=== PATIENT | female | born 1945 | race Caucasian/White ===

== ENCOUNTER 2017-08-06 10:44 | Inpatient (IN) | payer MEDICARE ==
[2017-08-06] VITALS (8 sets, daily range): BP systolic 128–152; BP diastolic 57–89; PULSE 114–126; RESP 16–24; TEMP 97.6–99.5; O2SAT 89–94
[~2017-08-06] VITALS: Ht 157.5 cm; Wt 61.1 kg
[~2017-08-06 10:44] MED LIST: FLAG500T PO; LACT PO; MMW SS; OFLO1DRO8 LEFT EYE; PRED10PA PO; TRAM50 PO
[2017-08-06] MEDS: RESP: ALBUTEROL 2.5 MG/IPRATROPIUM 0.5 MG NEB (SCH) INH ×5 (11:14→13:24)
[2017-08-06] MEDS ORDERED: SODIUM CHLORIDE 0.9% FLUSH 10 ML FLUSH IVF PRN (11:15)
[2017-08-06] MEDS ORDERED: methylPREDNISolone SOD SUCC 125 MG/2 ML VIAL IV PUSH ONE (11:15)
[2017-08-06 11:26] LABS: AUTOMATED NEUTROPHIL # 9.5 TH/MM3 (1.8-7.7); BASOPHIL % 0.4 % (0.0-2.0); EOSINOPHIL % 0.3 % (0.0-4.0); HEMATOCRIT 39.5 % (35.0-46.0); LYMPH % 10.9 % (9.0-44.0); LYMPHOCYTE # 1.3 TH/MM3 (1.0-4.8); MEAN CELL VOLUME 82.6 FL (80.0-100.0); MEAN CORPUSCULAR HEMOGLOBIN 28.3 PG (27.0-34.0); MEAN CORPUSCULAR HGB CONC 34.2 % (32.0-36.0); MONO % 6.9 % (0.0-8.0); NEUT % 81.5 % (16.0-70.0); PLATELET COUNT 288 TH/MM3 (150-450); RED BLOOD COUNT 4.78 MIL/MM3 (4.00-5.30); RED CELL DISTRIBUTION WIDTH 12.8 % (11.6-17.2); WHITE BLOOD COUNT 11.6 TH/MM3 (4.0-11.0)
[2017-08-06 11:35] LABS: HEMO FLAGS DIFF FINAL
[2017-08-06 11:37] LABS: CHLORIDE 105 MEQ/L (98-107); POTASSIUM 3.6 MEQ/L (3.5-5.1); SODIUM (NA) 139 MEQ/L (136-145)
[2017-08-06 11:40] LABS: BLOOD UREA NITROGEN 11 MG/DL (7-18)
[2017-08-06 11:41] LABS: ANION GAP 9 MEQ/L (5-15); BICARBONATE 25.3 MEQ/L (21.0-32.0)
[2017-08-06 11:44] LABS: ALT (GPT) 117 U/L (10-53)
[2017-08-06 11:45] LABS: AST (GOT) 68 U/L (15-37); GLOMERULAR FILTRATION RATE 61 ML/MIN (>89)
[2017-08-06 11:46] LABS: TOTAL BILIRUBIN ADULT 0.5 MG/DL (0.2-1.0)
[2017-08-06 11:47] LABS: ALKALINE PHOSPHATASE 152 U/L (45-117)
--- NOTE | 2017-08-06 11:59 | RADRPT ---
EXAM DATE/TIME: 08/06/2017 11:23 [facility] COMPARISON: CHEST SINGLE AP, April 04, 2015, 8:22. INDICATIONS : Short of breath, cough, fever MEDICAL HISTORY : None. SURGICAL HISTORY : None. ENCOUNTER: Initial ACUITY: 1 day PAIN SCORE: 0/10 LOCATION: Bilateral chest FINDINGS: The heart is normal. The pulmonary vascular pattern is normal. The lungs are clear. There is mild abebe vation of the right hemidiaphragm. No focal infiltrate is noted. CONCLUSION: 1. No acute cardiopulmonary disease. 2. Mild elevation of the right hemidiaphragm. Ross Mccall MD on August 06, 2017 at 11:56 Board Certified Radiologist. This report was verified electronically.
--- NOTE | 2017-08-06 12:04 | PD ---
HPI Chief Complaint: Respiratory Symptoms Time Seen by Provider: 11:04 Travel History International Travel<30 days: No Contact w/Intl Traveler<30days: No Traveled to known affect area: No History of Present Illness HPI 72-year-old female patient with history of bronchitis and pneumonia, presents to the ER today for several days history of coughing, shortness of breath, worse with exertion. She denies any leg swelling, fevers, vomiting, or other symptoms. She denies any recent trips. Modifying Factors: Worse with exertion Associated Signs & Symptoms: Coughing, shortness of breath Risk Factors: None PFSH Past Medical History Hx Anticoagulant Therapy: No Asthma: No Blood Disorders: No Anxiety: Yes (PAST [place] FOR) Depression: No Heart Rhythm Problems: No Cancer: No Cardiovascular Problems: No High Cholesterol: No Chemotherapy: No Chest Pain: No Congestive Heart Failure: No COPD: No Cerebrovascular Accident: No Diabetes: No Diminished Hearing: No Endocrine: No Gastrointestinal Disorders: Yes (RECENT HX OF STOMACH UPSET AND DIAGNOSTICS FOR SAME) Genitourinary: No Headaches: Yes Immune Disorder: No Musculoskeletal: No Neurologic: No Psychiatric: No Reproductive: No Respiratory: No Pneumonia: Yes Radiation Therapy: No Sleep Apnea: No Thyroid Disease: No Influenza Vaccination: No Menopausal: Yes : 2 Para: 2 Past Surgical History Appendectomy: Yes Hysterectomy: Yes Oral Surgery: Yes (ESOPHAGUS DILATION 04/03/15) Other Surgery: Yes (breast augmentation, colonoscopy/endoscopy 04/03/15, COLON POLYUPS REMOVED ) Social History Alcohol Use: No Tobacco Use: No Substance Use: No Allergies-Medications (Allergen,Severity, Reaction): Coded Allergies: No Known Allergies (Unverified , 04/04/15) Reported Meds & Prescriptions Reported Meds & Active Scripts Active Ocuflox 0.3% Opht Soln (5 Ml) (Ofloxacin) 0.3 % Soln 1 Drop LEFT EYE QID 7 Days Ultram (Tramadol HCl) 50 Mg Tab 50 Mg PO Q6H PRN FOR PAIN Sterapred Ds 12 Day Pack (Prednisone) 10 Mg Wolfgang 10 Mg PO DIRECTED USE DIRECTED Magic Mouthwash-Diphenhy Formula (Lidocaine/Diphenhydr/Alum/Mg/Simeth) Ml 5 Ml SS Q3HR MAGIC MOUTHWASH=MIX 1/3 VISCOUS LIDOCAINE(80 ML), 1/3 MAALOX(80 ML),AND 1/3 BENADRYL(80 ML) TO EQUAL 240 ML TOTAL VOLUME. Lactinex (Lactobacillus Acidophilus) 1 Tab Tab 1 Tab PO Q12HR 30 Days Flagyl (Metronidazole) 500 Mg Tab 500 Mg PO TID 13 Days Review of Systems Except as stated in HPI: all other systems reviewed are Neg Physical Exam Narrative GENERAL: Well-developed elderly white female patient currently in mild respiratory distress. Awake and oriented 3. SKIN: Focused skin assessment warm/dry. HEAD: Atraumatic. Normocephalic. EYES: Pupils equal and round. No scleral icterus. No injection or drainage. ENT: No nasal bleeding or discharge. Mucous membranes pink and moist. NECK: Trachea midline. No JVD. CARDIOVASCULAR: Regular rate and rhythm. No murmur appreciated. RESPIRATORY: Mild accessory muscle use. Bilateral wheezing throughout. Breath sounds equal bilaterally. GASTROINTESTINAL: Abdomen soft, non-tender, nondistended. Hepatic and splenic margins not palpable. MUSCULOSKELETAL: No obvious deformities. No clubbing. No cyanosis. No edema. NEUROLOGICAL: Awake and alert. No obvious cranial nerve deficits. Motor grossly within normal limits. Normal speech. PSYCHIATRIC: Appropriate mood and affect; insight and judgment normal. Data Data Last Documented VS Vital Signs Date Time Temp Pulse Resp B/P (MAP) Pulse Ox O2 Delivery O2 Flow Rate FiO2 08/06/17 13:15 126 20 128/57 (80) 93 Nasal Cannula 4.00 08/06/17 10:53 99.5 Orders Orders Complete Blood Count With Diff (08/06/17 11:04) Comprehensive Metabolic Panel (08/06/17 11:04) B-Type Natriuretic Peptide (08/06/17 11:04) Influenzae A/B Antigen (08/06/17 11:04) Blood Culture (08/06/17 11:04) Iv Access Insert/Monitor (08/06/17 11:04) Electrocardiogram (08/06/17 11:04) Ecg Monitoring (08/06/17 11:04) Oximetry (08/06/17 11:04) Oxygen Administration (08/06/17 11:04) Chest, Single Ap (08/06/17 11:04) Sodium Chloride 0.9% Flush (Ns Flush) (08/06/17 11:15) Methylprednisolone So Succ Inj (Solumedr (08/06/17 11:15) Albuterol-Ipratropium Neb (Duoneb Neb) (08/06/17 11:15) Albuterol-Ipratropium Neb (Duoneb Neb) (08/06/17 12:15) Magnesium Sulfate 1 Gm Premix (Magnesium (08/06/17 13:00) Albuterol-Ipratropium Neb (Duoneb Neb) (08/06/17 13:00) Admit Order (Ed Use Only) (08/06/17 14:14) Labs Laboratory Tests Test 08/06/17 10:55 08/06/17 11:13 White Blood Count 11.6 TH/MM3 Red Blood Count 4.78 MIL/MM3 Hemoglobin 13.5 GM/DL Hematocrit 39.5 % Mean Corpuscular Volume 82.6 FL Mean Corpuscular Hemoglobin 28.3 PG Mean Corpuscular Hemoglobin Concent 34.2 % Red Cell Distribution Width 12.8 % Platelet Count 288 TH/MM3 Mean Platelet Volume 7.8 FL Neutrophils (%) (Auto) 81.5 % Lymphocytes (%) (Auto) 10.9 % Monocytes (%) (Auto) 6.9 % Eosinophils (%) (Auto) 0.3 % Basophils (%) (Auto) 0.4 % Neutrophils # (Auto) 9.5 TH/MM3 Lymphocytes # (Auto) 1.3 TH/MM3 Monocytes # (Auto) 0.8 TH/MM3 Eosinophils # (Auto) 0.0 TH/MM3 Basophils # (Auto) 0.0 TH/MM3 CBC Comment DIFF FINAL Differential Comment Blood Urea Nitrogen 11 MG/DL Creatinine 0.91 MG/DL Random Glucose 138 MG/DL Total Protein 7.3 GM/DL Albumin 3.5 GM/DL Calcium Level 8.6 MG/DL Alkaline Phosphatase 152 U/L Aspartate Amino Transf (AST/SGOT) 68 U/L Alanine Aminotransferase (ALT/SGPT) 117 U/L Total Bilirubin 0.5 MG/DL Sodium Level 139 MEQ/L Potassium Level 3.6 MEQ/L Chloride Level 105 MEQ/L Carbon Dioxide Level 25.3 MEQ/L Anion Gap 9 MEQ/L Estimat Glomerular Filtration Rate 61 ML/MIN B-Type Natriuretic Peptide 44 PG/ML MDM Medical Decision Making Medical Screen Exam Complete: Yes Emergency Medical Condition: Yes Medical Record Reviewed: Yes Interpretation(s) Laboratory Tests Test 08/06/17 10:55 08/06/17 11:13 White Blood Count 11.6 TH/MM3 (4.0-11.0) Neutrophils (%) (Auto) 81.5 % (16.0-70.0) Neutrophils # (Auto) 9.5 TH/MM3 (1.8-7.7) Random Glucose 138 MG/DL (74-106) Alkaline Phosphatase 152 U/L (45-117) Aspartate Amino Transf (AST/SGOT) 68 U/L (15-37) Alanine Aminotransferase (ALT/SGPT) 117 U/L (10-53) Estimat Glomerular Filtration Rate 61 ML/MIN (>89) Last 24 hours Impressions Chest X-Ray 08/06/17 1104 Signed Impressions: Service Date/Time: Sunday, August 06, 2017 11:23 - CONCLUSION: 1. No acute cardiopulmonary disease. 2. Mild elevation of the right hemidiaphragm. Ross Mccall MD Differential Diagnosis Coughing, wheezing, shortness of breath: Bronchitis versus pneumonia versus COPD exacerbation versus CHF Narrative Course Chest x-ray is clear. Her BNP is unremarkable. She was initiated on Solu- Medrol and multiple doses of nebulizers. She did have some improvement in symptoms but her saturations are still quite low. Magnesium was also given in the ER. And at this point, my plan would be to admit her for further treatment. Case was discussed with Dr. dugan for admission. Diagnosis Primary Impression: Bronchitis Additional Impression: Hypoxia Admitting Information Admitting Physician Requests: Admit Tressa Carr MD Aug 06, 2017 12:04
--- NOTE | 2017-08-06 12:32 | EKG ---
Date Performed: 08/06/2017 Time Performed: 10:52:06 PTAGE: 72 years EKG: SINUS TACHYCARDIA POSSIBLE LEFT ATRIAL ENLARGEMENT ABNORMAL RHYTHM ECG NO PREVIOUS TRACING DOCTOR: Dave Craft Interpretating Date/Time 08/06/2017 12:31:52
[2017-08-06] MEDS: MAGNESIUM SULFATE 1 GM PREMIX 100 ML IV SCH ×2 (13:32→14:47)
--- NOTE | 2017-08-06 15:34 | MH ---
cc: PITER OLIVARES M.D. DATE OF ADMISSION: 08/06/2017 ADMITTING DIAGNOSIS: 1. Asthmatic bronchitis. 2. Mild hypoxia. 3. Elevated liver function tests of questionable etiology. 4. Gastroesophageal reflux disease (GERD). 5. History of colon polyps. 6. Vitamin D insufficiency. HISTORY OF PRESENT ILLNESS This is a 72-year-old white female who came to the emergency room today with worsening shortness of breath, wheezing and cough. She started with cold-like symptoms or runny nose and cough about six days ago and it got worse yesterday and this morning when she woke up she was having difficulty breathing in and out, more so on breathing out. The cough has been worsening and she has not been able to cough up much mucus only occasionally productive. She has had some chills last night but none today. No sore throat. No vomiting or abdominal pain or chest pain. In the emergency department she has been given several breathing treatments with just some slight improvement but still mildly tachycardic and requiring oxygen and is being admitted for further treatment. PAST MEDICAL HISTORY: She denies any history of COPD or emphysema. She smoked, she states, only about a total 12 years and one pack a day at the most. She has had bronchitis in the past. No TB, no heart disease, hypertension, diabetes, no kidney disease. Denies any history of liver disease but I noticed that her liver enzymes are a little elevated. She was noted to have some diverticulosis on a CT scan of abdomen 04/04/2015. She had some colon polyps removed on 04/03/15 and had an upper endoscopy 04/03/2015 that showed esophagitis, gastritis, small hiatal hernia and dilation of esophageal stricture. She had some vitamin D insufficiency. She has had H. Pylori infection and no stroke or seizure. She has had chickenpox. No thyroid disease, PAST SURGICAL HISTORY: 1. Vaginal hysterectomy. 2. Appendectomy. 3. Bilateral saline breast implants. 4. Colonoscopy 04/03/2015 with four polyps removed. 5. EGD 04/03/2015 as mentioned with gastritis, esophagitis, small hiatal hernia and dilation of a stricture. ALLERGIES: CODEINE JUST CAUSES SOME NAUSEA. MEDICATIONS: She is not on any medications at home and does not have any inhalers at home. FAMILY HISTORY: Her mother at 78 of COPD / emphysema. Her father at 79 of lung cancer. SOCIAL HISTORY: She quit smoking two or three years ago. She smoked a pack a day. She states that she would smoke off and on and she estimates her total years of smoking was 12. She denies alcohol. She is twice. She used to work in management of properties. REVIEW OF SYSTEMS: GENERAL: She has not checked her temperature. She did have some chills last night. HEAD, EYES, EARS, NOSE, THROAT: She has had a runny nose. No sore throat. CARDIOVASCULAR: No chest pain or palpitations. PULMONARY: As mentioned. GASTROINTESTINAL: No nausea or vomiting, abdominal pain. She had some loose stools earlier in the week. No rectal bleeding. EXTREMITIES: Without swelling or calf pain. SKIN: Without rash. NEUROLOGIC: No focal signs. PHYSICAL EXAMINATION: GENERAL: A pleasant white female in no significant distress. VITAL SIGNS: Her pulse has been tachycardic at times from 114 to 125, respiratory rate last checked was 20, blood pressure 128/57, 02 saturation was down to 89% on oxygen at one point. She is up to 93% on four liters now. HEAD, EYES, EARS, NOSE, THROAT: TMs clear. Nose negative. Mouth without inflammation or lesion. NECK: Without bruit. No JVD. HEART: Regular tachycardia. LUNGS: Scattered wheezes and rhonchi. ABDOMEN: Abdomen is soft, nontender, no masses. EXTREMITIES: Good pulses both feet. No edema. No calf tenderness. SKIN: Negative. NEUROLOGIC: Oriented x3. Cranial nerves intact. Motor and sensory intact. LABORATORY DATA: Her white count was 11.6, hemoglobin 13.5, platelets were normal. Her AST was 68, ALT was 117, alkaline phosphatase 152. BNP was 44. Albumin 3.5 total protein 7.3. GFR was 61, sodium 139, potassium 3.6, chloride 105, CO2 25.3, 819. IMAGING STUDIES: Chest x-ray showed no acute cardiopulmonary disease. There was some mild elevation of the right hemidiaphragm. ASSESSMENT As noted. PLAN: 1. Patient will be admitted and put on IV Solu-Medrol. 2. Give her some IV Zithromax. 3. Also will continue her on duonebulizer treatments. 4. She will be maintained on supplemental oxygen for now. No further recommendation at this time. MD MEGHAN Dial/BRENDON /2:48 PM /3:19 PM
[2017-08-06] MEDS: AZITHROMYCIN INJ 500 MG in SODIUM CHLOR 0.9% 250 ML INJ 250 ML IV SCH (15:57)
[2017-08-06] MEDS: ENOXAPARIN SODIUM 40 MG/0.4 ML SYRINGE SQ SCH (15:58)
[2017-08-06] MEDS: RESP: ALBUTEROL 2.5 MG/IPRATROPIUM 0.5 MG NEB (SCH) NEB ×3 (16:56→23:28)
[2017-08-06] MEDS: methylPREDNISolone SOD SUCC 40 MG/1 ML VIAL IV PUSH SCH ×2 (17:07→23:50)
[2017-08-06] MEDS: BENZOCAINE 6 MG/MENTHOL 10 MG LOZENGE BUCCAL PRN (23:50)
[2017-08-07] VITALS (8 sets, daily range): BP systolic 112–143; BP diastolic 53–63; PULSE 101–109; RESP 16–20; TEMP 97.1–100.1; O2SAT 91–97
[2017-08-07] MEDS: RESP: ALBUTEROL 2.5 MG/IPRATROPIUM 0.5 MG NEB (SCH) NEB ×6 (03:58→23:56)
[2017-08-07] MEDS: methylPREDNISolone SOD SUCC 40 MG/1 ML VIAL IV PUSH SCH ×3 (05:47→17:52)
[2017-08-07] MEDS: BENZOCAINE 6 MG/MENTHOL 10 MG LOZENGE BUCCAL PRN ×3 (05:51→13:12)
[2017-08-07 06:06] LABS: AUTOMATED NEUTROPHIL # 12.4 TH/MM3 (1.8-7.7); BASOPHIL % 0.1 % (0.0-2.0); EOSINOPHIL % 0.2 % (0.0-4.0); LYMPH % 5.9 % (9.0-44.0); LYMPHOCYTE # 0.8 TH/MM3 (1.0-4.8); MEAN CELL VOLUME 84.9 FL (80.0-100.0); MEAN CORPUSCULAR HEMOGLOBIN 27.3 PG (27.0-34.0); MEAN CORPUSCULAR HGB CONC 32.2 % (32.0-36.0); MONO % 6.2 % (0.0-8.0); NEUT % 87.6 % (16.0-70.0); PLATELET COUNT 267 TH/MM3 (150-450); RED BLOOD COUNT 4.36 MIL/MM3 (4.00-5.30); RED CELL DISTRIBUTION WIDTH 13.3 % (11.6-17.2); WHITE BLOOD COUNT 14.1 TH/MM3 (4.0-11.0)
[2017-08-07 06:10] LABS: HEMO FLAGS DIFF FINAL
--- NOTE | 2017-08-07 08:01 | HHI.PR ---
Subjective Remarks States she is breathing better but still has a congested cough and wheezing. No other complaints. She is still requiring oxygen Objective Vitals Vital Signs Date Time Temp Pulse Resp B/P (MAP) Pulse Ox O2 Delivery O2 Flow Rate FiO2 08/07/17 07:41 93 Nasal Cannula 4.00 08/07/17 00:00 97.3 108 17 131/63 (85) 94 08/06/17 20:00 97.6 126 17 136/57 (83) 92 08/06/17 19:19 94 Nasal Cannula 4.00 08/06/17 16:59 91 Nasal Cannula 4.00 08/06/17 16:00 98.4 120 16 146/67 (93) 93 Manual Cuff/Auscultation 08/06/17 15:15 122 20 134/89 (104) 93 Nasal Cannula 4.00 08/06/17 13:15 126 20 128/57 (80) 93 Nasal Cannula 4.00 08/06/17 12:03 116 20 129/67 (87) 91 Nasal Cannula 4.00 08/06/17 10:53 24 89 Nasal Cannula 4.00 08/06/17 10:53 99.5 114 24 152/85 (107) 89 Result Diagram: 08/07/17 0545 08/06/17 1055 Other Results Laboratory Tests Test 08/06/17 10:55 08/06/17 11:13 08/07/17 05:45 White Blood Count 11.6 TH/MM3 14.1 TH/MM3 Red Blood Count 4.78 MIL/MM3 4.36 MIL/MM3 Hemoglobin 13.5 GM/DL 11.9 GM/DL Hematocrit 39.5 % 37.0 % Mean Corpuscular Volume 82.6 FL 84.9 FL Mean Corpuscular Hemoglobin 28.3 PG 27.3 PG Mean Corpuscular Hemoglobin Concent 34.2 % 32.2 % Red Cell Distribution Width 12.8 % 13.3 % Platelet Count 288 TH/MM3 267 TH/MM3 Mean Platelet Volume 7.8 FL 7.6 FL Neutrophils (%) (Auto) 81.5 % 87.6 % Lymphocytes (%) (Auto) 10.9 % 5.9 % Monocytes (%) (Auto) 6.9 % 6.2 % Eosinophils (%) (Auto) 0.3 % 0.2 % Basophils (%) (Auto) 0.4 % 0.1 % Neutrophils # (Auto) 9.5 TH/MM3 12.4 TH/MM3 Lymphocytes # (Auto) 1.3 TH/MM3 0.8 TH/MM3 Monocytes # (Auto) 0.8 TH/MM3 0.9 TH/MM3 Eosinophils # (Auto) 0.0 TH/MM3 0.0 TH/MM3 Basophils # (Auto) 0.0 TH/MM3 0.0 TH/MM3 CBC Comment DIFF FINAL DIFF FINAL Differential Comment Blood Urea Nitrogen 11 MG/DL Creatinine 0.91 MG/DL Random Glucose 138 MG/DL Total Protein 7.3 GM/DL Albumin 3.5 GM/DL Calcium Level 8.6 MG/DL Alkaline Phosphatase 152 U/L Aspartate Amino Transf (AST/SGOT) 68 U/L Alanine Aminotransferase (ALT/SGPT) 117 U/L Total Bilirubin 0.5 MG/DL Direct Bilirubin 0.1 MG/DL Sodium Level 139 MEQ/L Potassium Level 3.6 MEQ/L Chloride Level 105 MEQ/L Carbon Dioxide Level 25.3 MEQ/L Anion Gap 9 MEQ/L Estimat Glomerular Filtration Rate 61 ML/MIN B-Type Natriuretic Peptide 44 PG/ML Imaging Last Impressions Chest X-Ray 08/06/17 1104 Signed Impressions: Service Date/Time: Sunday, August 06, 2017 11:23 - CONCLUSION: 1. No acute cardiopulmonary disease. 2. Mild elevation of the right hemidiaphragm. Ross Mccall MD Objective Remarks Exam: Pleasant white female in no distress HEENT: Pupils equal, no scleral icterus, mouth negative Neck: No JVD Heart: RRR with no murmurs Lungs: Still some wheezing and rhonchi throughout Abdomen: Soft, nontender Extremities: No edema, no calf tenderness Neuro: Alert, oriented, no focal findings A/P Assessment and Plan Assessment: --Asthmatic bronchitis --Mild hypoxia --Elevated liver enzymes--questionable etiology --GERD --Hx of colon polyps Plan: Continue IV Steroids and bronchodilator treatments. Continue IV Zithromax Continue oxygen as necessary. An ultrasound of the abdomen has been ordered for today to look at her liver and biliary tract. Continue DVT prophylaxis. Jim Morton MD Aug 07, 2017 08:01
--- NOTE | 2017-08-07 09:35 | RADRPT ---
EXAM DATE/TIME: 08/07/2017 07:57 [facility] COMPARISON: No previous studies available for comparison. INDICATIONS : Elevated lab values. MEDICAL HISTORY : Pneumonia. Anxiety. Clostridum difficle. SURGICAL HISTORY : Appendectomy. Hysterectomy. Esophagus dilation. Colonoscopy. Endoscopy. Breast augmentation. Colon polyps removed. ENCOUNTER: Initial ACUITY: 1 day PAIN SCORE: 0/10 LOCATION: Abdomen. MEASUREMENTS: LIVER: 11.7 cm length COMMON DUCT: 4 mm RIGHT KIDNEY: 9.2 x 4.9 x 4.8 cm LEFT KIDNEY: 9.8 x 5.1 x 5.0 cm SPLEEN: 8.6 cm length AORTA: 1.9cm maximal FINDINGS: LIVER: Normal echotexture without focal lesion or ductal dilatation. COMMON DUCT: No intraluminal mass or stone visualized. GALLBLADDER: Contains no stones, demonstrates no wall thickening or pericholecystic fluid. PANCREAS: The visualized portions are within normal limits. RIGHT KIDNEY: No hydronephrosis, stone or mass. LEFT KIDNEY: No hydronephrosis, stone or mass. SPLEEN: No focal lesion. AORTA: Non aneurysmal. IVC: Within normal limits. CONCLUSION: 1. Unremarkable abdominal ultrasound examination. Specifically, no evidence for cholelithiasis or acu te cholecystitis and no evidence for biliary obstruction. Quinton Nieto MD on August 07, 2017 at 9:31 Board Certified Radiologist. This report was verified electronically.
[2017-08-07] MEDS: AZITHROMYCIN INJ 500 MG in SODIUM CHLOR 0.9% 250 ML INJ 250 ML IV SCH (15:27)
[2017-08-07] MEDS: ENOXAPARIN SODIUM 40 MG/0.4 ML SYRINGE SQ SCH (17:05)
[2017-08-08] VITALS (7 sets, daily range): BP systolic 136–154; BP diastolic 64–74; PULSE 92–114; RESP 16–20; TEMP 96.7–99; O2SAT 92–96
[2017-08-08] MEDS: methylPREDNISolone SOD SUCC 40 MG/1 ML VIAL IV PUSH SCH ×5 (00:07→23:55)
[2017-08-08] MEDS: RESP: ALBUTEROL 2.5 MG/IPRATROPIUM 0.5 MG NEB (SCH) NEB ×5 (04:15→19:35)
[2017-08-08 06:26] LABS: AUTOMATED NEUTROPHIL # 15.5 TH/MM3 (1.8-7.7); BASOPHIL % 0.1 % (0.0-2.0); EOSINOPHIL % 0.1 % (0.0-4.0); HEMATOCRIT 35.1 % (35.0-46.0); LYMPH % 5.1 % (9.0-44.0); LYMPHOCYTE # 0.9 TH/MM3 (1.0-4.8); MEAN CELL VOLUME 84.4 FL (80.0-100.0); MEAN CORPUSCULAR HEMOGLOBIN 28.5 PG (27.0-34.0); MEAN CORPUSCULAR HGB CONC 33.8 % (32.0-36.0); MONO % 5.9 % (0.0-8.0); NEUT % 88.8 % (16.0-70.0); PLATELET COUNT 272 TH/MM3 (150-450); RED BLOOD COUNT 4.16 MIL/MM3 (4.00-5.30); RED CELL DISTRIBUTION WIDTH 13.2 % (11.6-17.2); WHITE BLOOD COUNT 17.4 TH/MM3 (4.0-11.0)
[2017-08-08 06:35] LABS: HEMO FLAGS DIFF FINAL
[2017-08-08 06:47] LABS: INDIRECT BILIRUBIN 0.3 MG/DL (0.0-0.8); TOTAL BILIRUBIN ADULT 0.4 MG/DL (0.2-1.0)
--- NOTE | 2017-08-08 07:48 | HHI.PR ---
Subjective Remarks Still coughing and wheezing however she feels like she is gradually getting better. Still on 3 liters oxygen. Objective Vitals Vital Signs Date Time Temp Pulse Resp B/P (MAP) Pulse Ox O2 Delivery O2 Flow Rate FiO2 08/08/17 07:28 94 Nasal Cannula 3.00 08/08/17 00:00 99.0 92 20 143/67 (92) 94 08/07/17 23:56 95 Nasal Cannula 4.00 08/07/17 20:00 95 Nasal Cannula 4.00 08/07/17 20:00 100.1 103 20 143/63 (89) 95 08/07/17 19:44 97 Nasal Cannula 4.00 08/07/17 18:26 98.5 101 20 136/63 (87) 95 08/07/17 14:54 97.1 102 16 128/60 (82) 93 08/07/17 09:42 99.2 109 16 112/53 (72) 91 Result Diagram: 08/08/17 0525 08/06/17 1055 Other Results Laboratory Tests Test 08/06/17 10:55 08/06/17 11:13 08/07/17 05:45 08/08/17 05:25 White Blood Count 11.6 TH/MM3 14.1 TH/MM3 17.4 TH/MM3 Red Blood Count 4.78 MIL/MM3 4.36 MIL/MM3 4.16 MIL/MM3 Hemoglobin 13.5 GM/DL 11.9 GM/DL 11.8 GM/DL Hematocrit 39.5 % 37.0 % 35.1 % Mean Corpuscular Volume 82.6 FL 84.9 FL 84.4 FL Mean Corpuscular Hemoglobin 28.3 PG 27.3 PG 28.5 PG Mean Corpuscular Hemoglobin Concent 34.2 % 32.2 % 33.8 % Red Cell Distribution Width 12.8 % 13.3 % 13.2 % Platelet Count 288 TH/MM3 267 TH/MM3 272 TH/MM3 Mean Platelet Volume 7.8 FL 7.6 FL 8.1 FL Neutrophils (%) (Auto) 81.5 % 87.6 % 88.8 % Lymphocytes (%) (Auto) 10.9 % 5.9 % 5.1 % Monocytes (%) (Auto) 6.9 % 6.2 % 5.9 % Eosinophils (%) (Auto) 0.3 % 0.2 % 0.1 % Basophils (%) (Auto) 0.4 % 0.1 % 0.1 % Neutrophils # (Auto) 9.5 TH/MM3 12.4 TH/MM3 15.5 TH/MM3 Lymphocytes # (Auto) 1.3 TH/MM3 0.8 TH/MM3 0.9 TH/MM3 Monocytes # (Auto) 0.8 TH/MM3 0.9 TH/MM3 1.0 TH/MM3 Eosinophils # (Auto) 0.0 TH/MM3 0.0 TH/MM3 0.0 TH/MM3 Basophils # (Auto) 0.0 TH/MM3 0.0 TH/MM3 0.0 TH/MM3 CBC Comment DIFF FINAL DIFF FINAL DIFF FINAL Differential Comment Blood Urea Nitrogen 11 MG/DL Creatinine 0.91 MG/DL Random Glucose 138 MG/DL Total Protein 7.3 GM/DL 6.8 GM/DL Albumin 3.5 GM/DL 3.0 GM/DL Calcium Level 8.6 MG/DL Alkaline Phosphatase 152 U/L 120 U/L Aspartate Amino Transf (AST/SGOT) 68 U/L 50 U/L Alanine Aminotransferase (ALT/SGPT) 117 U/L 73 U/L Total Bilirubin 0.5 MG/DL 0.4 MG/DL Direct Bilirubin 0.1 MG/DL 0.1 MG/DL Sodium Level 139 MEQ/L Potassium Level 3.6 MEQ/L Chloride Level 105 MEQ/L Carbon Dioxide Level 25.3 MEQ/L Anion Gap 9 MEQ/L Estimat Glomerular Filtration Rate 61 ML/MIN B-Type Natriuretic Peptide 44 PG/ML Indirect Bilirubin 0.3 MG/DL Imaging Last Impressions Abdomen Ultrasound 08/07/17 0000 Signed Impressions: Service Date/Time: Monday, August 07, 2017 07:57 - CONCLUSION: 1. Unremarkable abdominal ultrasound examination. Specifically, no evidence for cholelithiasis or acute cholecystitis and no evidence for biliary obstruction. Quinton Nieto MD Chest X-Ray 08/06/17 1104 Signed Impressions: Service Date/Time: Sunday, August 06, 2017 11:23 - CONCLUSION: 1. No acute cardiopulmonary disease. 2. Mild elevation of the right hemidiaphragm. Ross Mccall MD Last Impressions Chest X-Ray 08/06/17 1104 Signed Impressions: Service Date/Time: Sunday, August 06, 2017 11:23 - CONCLUSION: 1. No acute cardiopulmonary disease. 2. Mild elevation of the right hemidiaphragm. Ross Mccall MD Objective Remarks Exam: Pleasant white female in no distress HEENT: Pupils equal, no scleral icterus, mouth negative Neck: No JVD Heart: RRR with no murmurs Lungs: Still some wheezing and rhonchi throughout Abdomen: Soft, nontender Extremities: No edema, no calf tenderness Neuro: Alert, oriented, no focal findings A/P Assessment and Plan Assessment: --Asthmatic bronchitis--Her WBC count has gone up which could be more from her steroids than worsening infection. --Mild hypoxia still requiring oxygen --Elevated liver enzymes--ultrasound negative. Her enzymes are improving. --GERD --Hx of colon polyps Plan: Continue IV Steroids and bronchodilator treatments. Change IV Zithromax to Levaquin. Continue oxygen as necessary. Continue DVT prophylaxis. Change to inpatient status since still requiring oxygen and respiratory status still compromised. Jim Morton MD Aug 08, 2017 07:48
[2017-08-08] MEDS ORDERED: LEVOFLOXACIN 500 MG PREMIX INJ 100 ML IV ONE (08:00)
[2017-08-08] MEDS: ENOXAPARIN SODIUM 40 MG/0.4 ML SYRINGE SQ SCH (16:11)
[2017-08-09] VITALS (7 sets, daily range): BP systolic 134–161; BP diastolic 67–75; PULSE 98–109; RESP 20; TEMP 97.1–99.1; O2SAT 90–98
[2017-08-09] MEDS: RESP: ALBUTEROL 2.5 MG/IPRATROPIUM 0.5 MG NEB (SCH) NEB ×7 (00:25→23:28)
[2017-08-09 05:55] LABS: AUTOMATED NEUTROPHIL # 14.6 TH/MM3 (1.8-7.7); EOSINOPHIL % 0.1 % (0.0-4.0); LYMPH % 5.4 % (9.0-44.0); LYMPHOCYTE # 0.9 TH/MM3 (1.0-4.8); MEAN CELL VOLUME 83.5 FL (80.0-100.0); MEAN CORPUSCULAR HEMOGLOBIN 27.6 PG (27.0-34.0); MEAN CORPUSCULAR HGB CONC 33.1 % (32.0-36.0); MONO % 5.6 % (0.0-8.0); NEUT % 88.9 % (16.0-70.0); PLATELET COUNT 308 TH/MM3 (150-450); RED BLOOD COUNT 4.19 MIL/MM3 (4.00-5.30); RED CELL DISTRIBUTION WIDTH 12.8 % (11.6-17.2); WHITE BLOOD COUNT 16.4 TH/MM3 (4.0-11.0)
[2017-08-09] MEDS: methylPREDNISolone SOD SUCC 40 MG/1 ML VIAL IV PUSH SCH ×4 (05:56→23:30)
[2017-08-09 06:21] LABS: HEMO FLAGS DIFF FINAL
[2017-08-09 06:53] LABS: INDIRECT BILIRUBIN 0.2 MG/DL (0.0-0.8); TOTAL BILIRUBIN ADULT 0.3 MG/DL (0.2-1.0)
--- NOTE | 2017-08-09 06:59 | HHI.PR ---
Subjective Remarks Still coughing and wheezing but thinks it is gradually getting better. Objective Vitals Vital Signs Date Time Temp Pulse Resp B/P (MAP) Pulse Ox O2 Delivery O2 Flow Rate FiO2 08/09/17 00:00 98.8 98 20 134/67 (89) 93 08/08/17 20:00 96 Nasal Cannula 3.50 08/08/17 20:00 98.6 99 20 154/74 (100) 96 08/08/17 19:35 96 Nasal Cannula 3.00 08/08/17 18:43 98.3 105 16 147/73 (97) 95 08/08/17 14:49 97.7 106 18 136/66 (89) 92 08/08/17 09:28 96.7 114 16 139/64 (89) 95 08/08/17 09:00 Nasal Cannula 3.00 08/08/17 07:28 94 Nasal Cannula 3.00 Result Diagram: 08/09/17 0543 08/06/17 1055 Other Results Laboratory Tests Test 08/08/17 05:25 08/09/17 05:43 White Blood Count 17.4 TH/MM3 16.4 TH/MM3 Red Blood Count 4.16 MIL/MM3 4.19 MIL/MM3 Hemoglobin 11.8 GM/DL 11.6 GM/DL Hematocrit 35.1 % 35.0 % Mean Corpuscular Volume 84.4 FL 83.5 FL Mean Corpuscular Hemoglobin 28.5 PG 27.6 PG Mean Corpuscular Hemoglobin Concent 33.8 % 33.1 % Red Cell Distribution Width 13.2 % 12.8 % Platelet Count 272 TH/MM3 308 TH/MM3 Mean Platelet Volume 8.1 FL 7.3 FL Neutrophils (%) (Auto) 88.8 % 88.9 % Lymphocytes (%) (Auto) 5.1 % 5.4 % Monocytes (%) (Auto) 5.9 % 5.6 % Eosinophils (%) (Auto) 0.1 % 0.1 % Basophils (%) (Auto) 0.1 % 0.0 % Neutrophils # (Auto) 15.5 TH/MM3 14.6 TH/MM3 Lymphocytes # (Auto) 0.9 TH/MM3 0.9 TH/MM3 Monocytes # (Auto) 1.0 TH/MM3 0.9 TH/MM3 Eosinophils # (Auto) 0.0 TH/MM3 0.0 TH/MM3 Basophils # (Auto) 0.0 TH/MM3 0.0 TH/MM3 CBC Comment DIFF FINAL DIFF FINAL Differential Comment Total Bilirubin 0.4 MG/DL 0.3 MG/DL Direct Bilirubin 0.1 MG/DL 0.1 MG/DL Indirect Bilirubin 0.3 MG/DL 0.2 MG/DL Aspartate Amino Transf (AST/SGOT) 50 U/L 112 U/L Alanine Aminotransferase (ALT/SGPT) 73 U/L 157 U/L Alkaline Phosphatase 120 U/L 133 U/L Total Protein 6.8 GM/DL 6.7 GM/DL Albumin 3.0 GM/DL 2.7 GM/DL Imaging Last Impressions Abdomen Ultrasound 08/07/17 0000 Signed Impressions: Service Date/Time: Monday, August 07, 2017 07:57 - CONCLUSION: 1. Unremarkable abdominal ultrasound examination. Specifically, no evidence for cholelithiasis or acute cholecystitis and no evidence for biliary obstruction. Quinton Nieto MD Chest X-Ray 08/06/17 1104 Signed Impressions: Service Date/Time: Sunday, August 06, 2017 11:23 - CONCLUSION: 1. No acute cardiopulmonary disease. 2. Mild elevation of the right hemidiaphragm. Ross Mccall MD Last Impressions Chest X-Ray 08/06/17 1104 Signed Impressions: Service Date/Time: Sunday, August 06, 2017 11:23 - CONCLUSION: 1. No acute cardiopulmonary disease. 2. Mild elevation of the right hemidiaphragm. Ross Mccall MD Objective Remarks Exam: Pleasant white female in no distress HEENT: Pupils equal, no scleral icterus, mouth negative Neck: No JVD Heart: RRR with no murmurs Lungs: Still some wheezing and rhonchi throughout Abdomen: Soft, nontender Extremities: No edema, no calf tenderness Neuro: Alert, oriented, no focal findings A/P Assessment and Plan Assessment: --Asthmatic bronchitis-- --Mild hypoxia still requiring oxygen --Elevated liver enzymes--ultrasound negative. Her enzymes are improving. --GERD --Hx of colon polyps Plan: Continue IV Steroids and bronchodilator treatments. Change IV Zithromax to Levaquin. Continue oxygen as necessary. Continue DVT prophylaxis. Add Mucinex po Jim Morton MD Aug 09, 2017 06:58
[2017-08-09] MEDS ORDERED: LEVOFLOXACIN/DEXTROSE 250 MG/50 ML IV SCH (08:00)
[2017-08-09] MEDS: guaiFENesin E.R. 600 MG TAB PO SCH ×2 (08:22→21:20)
[2017-08-09] MEDS: ENOXAPARIN SODIUM 40 MG/0.4 ML SYRINGE SQ SCH (15:42)
[2017-08-09 17:25] LABS: TRANSFERRIN IRON PROFILE 156 MG/DL (200-360)
[2017-08-09] MEDS ORDERED: DOXYCYCLINE HYCLATE 100 MG TAB PO SCH (21:00)
[2017-08-10] VITALS (7 sets, daily range): BP systolic 136–163; BP diastolic 65–77; PULSE 83–109; RESP 20; TEMP 97.3–99; O2SAT 91–100
[2017-08-10] MEDS: RESP: ALBUTEROL 2.5 MG/IPRATROPIUM 0.5 MG NEB (SCH) NEB ×5 (04:26→23:11)
[2017-08-10 05:27] LABS: BASOPHIL % 0.1 % (0.0-2.0); EOSINOPHIL % 0.1 % (0.0-4.0); LYMPH % 7.2 % (9.0-44.0); LYMPHOCYTE # 1.2 TH/MM3 (1.0-4.8); MEAN CELL VOLUME 83.5 FL (80.0-100.0); MEAN CORPUSCULAR HEMOGLOBIN 27.9 PG (27.0-34.0); MEAN CORPUSCULAR HGB CONC 33.4 % (32.0-36.0); MONO % 5.5 % (0.0-8.0); NEUT % 87.1 % (16.0-70.0); PLATELET COUNT 361 TH/MM3 (150-450); RED BLOOD COUNT 4.31 MIL/MM3 (4.00-5.30); RED CELL DISTRIBUTION WIDTH 13.1 % (11.6-17.2); WHITE BLOOD COUNT 17.1 TH/MM3 (4.0-11.0)
[2017-08-10 05:28] LABS: HEMO FLAGS AUTO DIFF
[2017-08-10 05:54] LABS: INDIRECT BILIRUBIN 0.3 MG/DL (0.0-0.8); TOTAL BILIRUBIN ADULT 0.4 MG/DL (0.2-1.0)
[2017-08-10 05:57] LABS: PLATELET ESTIMATE SMEAR NORMAL (NORMAL); PLATELET MORPHOLOGY NORMAL (NORMAL); SCAN/DIFF AUTO DIFF CONFIRMED
[2017-08-10] MEDS: methylPREDNISolone SOD SUCC 40 MG/1 ML VIAL IV PUSH SCH (06:23)
--- NOTE | 2017-08-10 07:04 | HHI.PR ---
Subjective Remarks She states her breathing is better. No abdominal pain. I had stopped Levaquin yesterday because her liver enzymes had gone up and I put her on Doxycycline. She states since then her hands have been a little red and neck area also. No itching. Objective Vitals Vital Signs Date Time Temp Pulse Resp B/P (MAP) Pulse Ox O2 Delivery O2 Flow Rate FiO2 08/10/17 00:00 99.0 95 20 141/71 (94) 93 08/09/17 20:10 92 Nasal Cannula 3.00 08/09/17 20:00 99.1 108 20 158/75 (102) 90 08/09/17 19:16 92 Nasal Cannula 3.00 08/09/17 15:50 97.1 106 20 161/75 (103) 91 08/09/17 11:50 97.5 109 20 150/70 (96) 91 08/09/17 08:30 Nasal Cannula 3.00 08/09/17 07:50 98.6 109 20 146/71 (96) 91 08/09/17 07:40 98 Nasal Cannula 3.00 Result Diagram: 08/10/17 0505 08/06/17 1055 Other Results Laboratory Tests Test 08/09/17 05:42 08/09/17 05:43 08/09/17 16:27 08/10/17 05:05 Iron Level 39 MCG/DL Total Iron Binding Capacity 218 MCG/DL Percent Iron Saturation 17.9 % White Blood Count 16.4 TH/MM3 17.1 TH/MM3 Red Blood Count 4.19 MIL/MM3 4.31 MIL/MM3 Hemoglobin 11.6 GM/DL 12.0 GM/DL Hematocrit 35.0 % 36.0 % Mean Corpuscular Volume 83.5 FL 83.5 FL Mean Corpuscular Hemoglobin 27.6 PG 27.9 PG Mean Corpuscular Hemoglobin Concent 33.1 % 33.4 % Red Cell Distribution Width 12.8 % 13.1 % Platelet Count 308 TH/MM3 361 TH/MM3 Mean Platelet Volume 7.3 FL 7.3 FL Neutrophils (%) (Auto) 88.9 % 87.1 % Lymphocytes (%) (Auto) 5.4 % 7.2 % Monocytes (%) (Auto) 5.6 % 5.5 % Eosinophils (%) (Auto) 0.1 % 0.1 % Basophils (%) (Auto) 0.0 % 0.1 % Neutrophils # (Auto) 14.6 TH/MM3 15.0 TH/MM3 Lymphocytes # (Auto) 0.9 TH/MM3 1.2 TH/MM3 Monocytes # (Auto) 0.9 TH/MM3 0.9 TH/MM3 Eosinophils # (Auto) 0.0 TH/MM3 0.0 TH/MM3 Basophils # (Auto) 0.0 TH/MM3 0.0 TH/MM3 CBC Comment DIFF FINAL AUTO DIFF Differential Comment AUTO DIFF CONFIRMED Total Bilirubin 0.3 MG/DL 0.4 MG/DL Direct Bilirubin 0.1 MG/DL 0.1 MG/DL Indirect Bilirubin 0.2 MG/DL 0.3 MG/DL Aspartate Amino Transf (AST/SGOT) 112 U/L 343 U/L Alanine Aminotransferase (ALT/SGPT) 157 U/L 438 U/L Alkaline Phosphatase 133 U/L 158 U/L Total Protein 6.7 GM/DL 6.9 GM/DL Albumin 2.7 GM/DL 2.7 GM/DL Platelet Estimate NORMAL Platelet Morphology Comment NORMAL Red Cell Morphology Comment NORMAL Imaging Last Impressions Abdomen Ultrasound 08/07/17 0000 Signed Impressions: Service Date/Time: Monday, August 07, 2017 07:57 - CONCLUSION: 1. Unremarkable abdominal ultrasound examination. Specifically, no evidence for cholelithiasis or acute cholecystitis and no evidence for biliary obstruction. Quinton Nieto MD Chest X-Ray 08/06/17 1104 Signed Impressions: Service Date/Time: Sunday, August 06, 2017 11:23 - CONCLUSION: 1. No acute cardiopulmonary disease. 2. Mild elevation of the right hemidiaphragm. Ross Mccall MD Last Impressions Chest X-Ray 08/06/17 1104 Signed Impressions: Service Date/Time: Sunday, August 06, 2017 11:23 - CONCLUSION: 1. No acute cardiopulmonary disease. 2. Mild elevation of the right hemidiaphragm. Ross Mccall MD Objective Remarks Exam: Pleasant white female in no distress HEENT: Pupils equal, no scleral icterus, mouth negative Neck: No JVD Heart: RRR with no murmurs Lungs: Still slight rhonchi and occasional wheeze but much better. Abdomen: Soft, nontender. Specifically there is no tenderness over her liver. Extremities: No edema, no calf tenderness Neuro: Alert, oriented, no focal findings A/P Assessment and Plan Assessment: --Asthmatic bronchitis--clinically better. --Mild hypoxia--oxygen still being used but amount has been decreased. --Elevated liver enzymes and her AST and ALT have gone up significantly since yesterday. I would suspect this is medication related. I will stop Lovenox which I read can cause elevate of AST and ALT in a small percentage of patients. I will stop Doxycycline also. Levaquin was stopped yesterday. --GERD --Hx of colon polyps Plan: Change IV Steroids to oral Prednisone at 20mg daily. Continue bronchodilator treatments. Antibiotics were stopped because of her rise of her liver enzymes. I will consult gastroenterology for her rising liver enzymes. I stopped Lovenox and will use SCD's and TEDs for DVT prophylaxis. A hepatitis profile was ordered yesterday and pending. Continue oxygen as necessary. Follow CBC which I hope will go down with decrease of her steroid dose. Monitor hepatic enzymes. Jim Morton MD Aug 10, 2017 07:04
[2017-08-10] MEDS: predniSONE 20 MG TAB PO SCH (09:46)
--- NOTE | 2017-08-10 19:06 | MB ---
cc: DAPHNIE SEWELL MD DATE OF CONSULTATION 08/10/17 [address] Morton REASON FOR REFERRAL Elevated liver function tests. HISTORY OF PRESENT ILLNESS Thank you for the consultation. HISTORY OF PRESENT ILLNESS A 72-year-old lady who is healthy otherwise who came because of bronchitis and shortness of breath. She was coughing, wheezing and her symptoms have been going on for few days. It got worse last week and then she came to the hospital because of that. She was admitted and treated with antibiotic and steroid. While she is in the hospital, her liver enzymes started going significantly up. It was mildly elevated on admission, but it got worse when she has been in the hospital for the last two days. The patient denied any blood exposure or drugs. No alcohol. No tattoos except one tattoo many years ago. No new sexual partners. No new medication whatsoever, except [place] that she took in the last few days and the steroid that was given to her during the hospitalization. She denied any abdominal pain. No nausea and no vomiting. No other symptoms. PAST MEDICAL HISTORY 1. Hysterectomy, 2. Appendectomy, 3. Breast implants 4. Colonoscopy with polypectomy 5. Upper endoscopy showing esophagitis, hiatal hernia and gastritis. MEDICATIONS None except [place] before she came FAMILY HISTORY Significant for COPD and lung cancer. SOCIAL HISTORY Quit smoking three years ago. No tobacco, no other drugs. ALLERGIES CODEINE REVIEW OF SYSTEMS All 12-point negative except HPI. PHYSICAL EXAMINATION GENERAL: Alert, oriented no acute distress. VITAL SIGNS: Stable. HEENT: Pupils are round, reactive to light. NECK: Supple. CHEST: Clear to auscultation and percussion CARDIAC: Regular rate and rhythm. ABDOMEN: Soft, nondistended. Positive bowel sounds. EXTREMITIES: No edema, clubbing or cyanosis. NEUROLOGIC: Neurologically intact. PSYCHIATRIC: Psychologically appropriate. LABORATORY DATA White count 17.1, hemoglobin 12.0, platelet 361. Liver function tests - total bilirubin 0.4, AST on admission was 50, today is 343, ALT 73 on admission, today is 438, alk phos 158, albumin 2.7. IMAGING STUDIES Abdominal ultrasound Unremarkable. Chest x-ray unremarkable. ASSESSMENT/PLAN A 72 year old lady with bronchitis, has been in the hospital for a few days on antibiotics and steroids. The patient received doxycycline and Levofloxacin and methylprednisolone. The patient has had elevated liver function tests. I doubt that this is a acute hepatitis. I think it is medication induced hepatitis. Her hepatitis profile is pending, ADEOLA pending, alpha-fetoprotein pending. I agree with stopping the medication and we will evaluate her liver function tests tomorrow and based on the labs and how her liver function test is doing, we might need to expand the lab. If it continued to be elevated, we might consider liver biopsy. The patient seems to be stable without any issue at this time. MD GALLITO Son/ /1:41 PM /6:40 PM
[2017-08-11] VITALS (7 sets, daily range): BP systolic 117–156; BP diastolic 56–72; PULSE 87–97; RESP 18–20; TEMP 97.7–99.2; O2SAT 94–97
[2017-08-11] MEDS: RESP: ALBUTEROL 2.5 MG/IPRATROPIUM 0.5 MG NEB (SCH) NEB ×6 (03:42→23:38)
[2017-08-11 06:21] LABS: AUTOMATED NEUTROPHIL # 12.8 TH/MM3 (1.8-7.7); BASOPHIL % 0.1 % (0.0-2.0); EOSINOPHIL % 0.2 % (0.0-4.0); HEMATOCRIT 34.9 % (35.0-46.0); LYMPH % 19.4 % (9.0-44.0); LYMPHOCYTE # 3.5 TH/MM3 (1.0-4.8); MEAN CELL VOLUME 84.3 FL (80.0-100.0); MEAN CORPUSCULAR HEMOGLOBIN 27.6 PG (27.0-34.0); MEAN CORPUSCULAR HGB CONC 32.7 % (32.0-36.0); MONO % 8.4 % (0.0-8.0); NEUT % 71.9 % (16.0-70.0); PLATELET COUNT 331 TH/MM3 (150-450); RED BLOOD COUNT 4.15 MIL/MM3 (4.00-5.30); RED CELL DISTRIBUTION WIDTH 12.9 % (11.6-17.2); WHITE BLOOD COUNT 17.8 TH/MM3 (4.0-11.0)
[2017-08-11 06:24] LABS: HEMO FLAGS DIFF FINAL
[2017-08-11 06:38] LABS: INDIRECT BILIRUBIN 0.2 MG/DL (0.0-0.8); TOTAL BILIRUBIN ADULT 0.3 MG/DL (0.2-1.0)
--- NOTE | 2017-08-11 07:24 | HHI.PR ---
Subjective Remarks Her breathing is a little better but still at times has trouble with coughing up mucus. No abdominal pain. Objective Vitals Vital Signs Date Time Temp Pulse Resp B/P (MAP) Pulse Ox O2 Delivery O2 Flow Rate FiO2 08/11/17 00:00 98.6 91 20 156/72 (100) 96 08/10/17 20:55 96 Nasal Cannula 3.00 08/10/17 20:00 97.8 83 20 163/74 (103) 95 08/10/17 15:50 97.3 99 20 157/77 (103) 100 08/10/17 11:50 97.3 100 20 136/65 (88) 94 08/10/17 08:13 93 Nasal Cannula 4.00 08/10/17 08:00 93 Nasal Cannula 4.00 08/10/17 07:30 97.5 109 20 144/66 (92) 91 Result Diagram: 08/11/17 0547 Other Results Laboratory Tests Test 08/09/17 16:27 08/10/17 05:05 08/11/17 05:47 White Blood Count 17.1 TH/MM3 17.8 TH/MM3 Red Blood Count 4.31 MIL/MM3 4.15 MIL/MM3 Hemoglobin 12.0 GM/DL 11.4 GM/DL Hematocrit 36.0 % 34.9 % Mean Corpuscular Volume 83.5 FL 84.3 FL Mean Corpuscular Hemoglobin 27.9 PG 27.6 PG Mean Corpuscular Hemoglobin Concent 33.4 % 32.7 % Red Cell Distribution Width 13.1 % 12.9 % Platelet Count 361 TH/MM3 331 TH/MM3 Mean Platelet Volume 7.3 FL 7.6 FL Neutrophils (%) (Auto) 87.1 % 71.9 % Lymphocytes (%) (Auto) 7.2 % 19.4 % Monocytes (%) (Auto) 5.5 % 8.4 % Eosinophils (%) (Auto) 0.1 % 0.2 % Basophils (%) (Auto) 0.1 % 0.1 % Neutrophils # (Auto) 15.0 TH/MM3 12.8 TH/MM3 Lymphocytes # (Auto) 1.2 TH/MM3 3.5 TH/MM3 Monocytes # (Auto) 0.9 TH/MM3 1.5 TH/MM3 Eosinophils # (Auto) 0.0 TH/MM3 0.0 TH/MM3 Basophils # (Auto) 0.0 TH/MM3 0.0 TH/MM3 CBC Comment AUTO DIFF DIFF FINAL Differential Comment AUTO DIFF CONFIRMED Platelet Estimate NORMAL Platelet Morphology Comment NORMAL Red Cell Morphology Comment NORMAL Total Bilirubin 0.4 MG/DL 0.3 MG/DL Direct Bilirubin 0.1 MG/DL 0.1 MG/DL Indirect Bilirubin 0.3 MG/DL 0.2 MG/DL Aspartate Amino Transf (AST/SGOT) 343 U/L 282 U/L Alanine Aminotransferase (ALT/SGPT) 438 U/L 653 U/L Alkaline Phosphatase 158 U/L 162 U/L Total Protein 6.9 GM/DL 6.0 GM/DL Albumin 2.7 GM/DL 2.5 GM/DL Hepatitis A IgM Antibody NEGATIVE Hepatitis B Surface Antigen NEGATIVE Hepatitis B Core IgM Antibody NEGATIVE Hepatitis C Antibody NEGATIVE Imaging Last Impressions Abdomen Ultrasound 08/07/17 0000 Signed Impressions: Service Date/Time: Monday, August 07, 2017 07:57 - CONCLUSION: 1. Unremarkable abdominal ultrasound examination. Specifically, no evidence for cholelithiasis or acute cholecystitis and no evidence for biliary obstruction. Quinton Nieto MD Chest X-Ray 08/06/17 1104 Signed Impressions: Service Date/Time: Sunday, August 06, 2017 11:23 - CONCLUSION: 1. No acute cardiopulmonary disease. 2. Mild elevation of the right hemidiaphragm. Ross Mccall MD Last Impressions Chest X-Ray 08/06/17 1104 Signed Impressions: Service Date/Time: Sunday, August 06, 2017 11:23 - CONCLUSION: 1. No acute cardiopulmonary disease. 2. Mild elevation of the right hemidiaphragm. Ross Mccall MD Objective Remarks Exam: Pleasant white female in no distress HEENT: Pupils equal, no scleral icterus, mouth negative Neck: No JVD Heart: RRR with no murmurs Lungs: Still slight rhonchi and occasional wheeze Abdomen: Soft, nontender. Specifically there is no tenderness over her liver. Extremities: No edema, no calf tenderness Neuro: Alert, oriented, no focal findings A/P Assessment and Plan Assessment: --Asthmatic bronchitis--clinically better. --Mild hypoxia--oxygen still being used but amount has been decreased. --Elevated liver enzymes and her AST and ALT have gone up significantly since yesterday. I would suspect this is medication related. Her Lovenox was stopped on 08-10-17 when I read that it can cause elevation of AST and ALT in a small percentage of patients. Her Doxycycline was also stopped on 08-10-17 after one day of use. Her Levaquin was stopped on 08-09-17. Her AST is down some from yesterday but her ALT went up higher. Her alkaline phosphatase is stable. --Mild elevated WBC--Likely up because of high dose steroid use. She has no fever and clinically is slightly improved. --GERD --Hx of colon polyps Plan: Continue oral Prednisone at 20mg daily. Continue bronchodilator treatments. Antibiotics were stopped because of rise of her liver enzymes. Seen by GI yesterday who feels that her elevated liver enzymes are likely secondary to medication effect. Continue oxygen as necessary. Follow CBC which I hope will go down with decrease of her steroid dose. Monitor hepatic enzymes. Jim Morton MD Aug 11, 2017 07:24
[2017-08-11] MEDS: predniSONE 20 MG TAB PO SCH (09:25)
[2017-08-11] MEDS: BENZOCAINE 6 MG/MENTHOL 10 MG LOZENGE BUCCAL PRN (16:33)
[2017-08-12] VITALS (8 sets, daily range): BP systolic 124–157; BP diastolic 58–70; PULSE 94–102; RESP 16–24; TEMP 96.3–99.5; O2SAT 92–97
[2017-08-12] MEDS: RESP: ALBUTEROL 2.5 MG/IPRATROPIUM 0.5 MG NEB (SCH) NEB ×6 (03:36→23:17)
[2017-08-12 07:32] LABS: AUTOMATED NEUTROPHIL # 10.4 TH/MM3 (1.8-7.7); BASOPHIL % 0.2 % (0.0-2.0); EOSINOPHIL # 0.1 TH/MM3 (0-0.4); EOSINOPHIL % 0.8 % (0.0-4.0); HEMATOCRIT 35.5 % (35.0-46.0); LYMPH % 23.3 % (9.0-44.0); LYMPHOCYTE # 3.6 TH/MM3 (1.0-4.8); MEAN CELL VOLUME 84.1 FL (80.0-100.0); MEAN CORPUSCULAR HEMOGLOBIN 26.8 PG (27.0-34.0); MEAN CORPUSCULAR HGB CONC 31.9 % (32.0-36.0); MONO % 9.1 % (0.0-8.0); NEUT % 66.6 % (16.0-70.0); PLATELET COUNT 370 TH/MM3 (150-450); RED BLOOD COUNT 4.23 MIL/MM3 (4.00-5.30); RED CELL DISTRIBUTION WIDTH 13.1 % (11.6-17.2); WHITE BLOOD COUNT 15.5 TH/MM3 (4.0-11.0)
[2017-08-12 07:33] LABS: HEMO FLAGS DIFF FINAL
[2017-08-12 08:17] LABS: BICARBONATE 28.1 MEQ/L (21.0-32.0); INDIRECT BILIRUBIN 0.2 MG/DL (0.0-0.8); TOTAL BILIRUBIN ADULT 0.3 MG/DL (0.2-1.0)
--- NOTE | 2017-08-12 08:19 | HHI.PR ---
Subjective Remarks Feeling better. Still with wheezing but increased air movement per patient. She reports the Acapella device as helped her move phlegm and possible mucous plugs. Denies nausea vomiting or any abdominal pain. Objective Vitals Vital Signs Date Time Temp Pulse Resp B/P (MAP) Pulse Ox O2 Delivery O2 Flow Rate FiO2 08/12/17 08:08 97 Nasal Cannula 3.00 08/12/17 00:00 99.5 102 18 124/59 (80) 96 08/11/17 20:09 97 Nasal Cannula 3.00 08/11/17 20:00 98.6 87 18 122/58 (79) 96 08/11/17 16:00 97.7 89 18 117/56 (76) 95 08/11/17 12:00 98.5 94 18 133/63 (86) 94 GENERAL: No acute distress, alert and oriented, pleasant. SKIN: Warm and dry. Left forearm with small area of mild erythema just proximal to IV site. HEAD: Normocephalic. EYES: No scleral icterus. No injection or drainage. NECK: Supple, trachea midline. No JVD or lymphadenopathy. CARDIOVASCULAR: Regular rate and rhythm without murmurs, gallops, or rubs. RESPIRATORY: Few expiratory wheezes and rhonchus breath sounds bilaterally. Fair air movement. GASTROINTESTINAL: Abdomen soft, non-tender, nondistended. Bowel sounds normal. No Guarding or rebound. MUSCULOSKELETAL: No cyanosis, or edema. Moves all extremities well. BACK: Nontender without obvious deformity. No CVA tenderness. Result Diagram: 08/12/17 0700 Imaging Last Impressions Abdomen Ultrasound 08/07/17 0000 Signed Impressions: Service Date/Time: Monday, August 07, 2017 07:57 - CONCLUSION: 1. Unremarkable abdominal ultrasound examination. Specifically, no evidence for cholelithiasis or acute cholecystitis and no evidence for biliary obstruction. Quinton Nieto MD Chest X-Ray 08/06/17 1104 Signed Impressions: Service Date/Time: Sunday, August 06, 2017 11:23 - CONCLUSION: 1. No acute cardiopulmonary disease. 2. Mild elevation of the right hemidiaphragm. Ross Mccall MD Last Impressions Chest X-Ray 08/06/17 1104 Signed Impressions: Service Date/Time: Nasir, August 06, 2017 11:23 - CONCLUSION: 1. No acute cardiopulmonary disease. 2. Mild elevation of the right hemidiaphragm. Ross Mccall MD Urinary Catheter: No Vascular Central Line Catheter: No A/P Problem List: (1) Bronchitis ICD Codes: J40 - Bronchitis, not specified as acute or chronic Status: Acute Plan: Clinically improving. Some bronchospasm still noted. Continue oral prednisone and nebulizers. Supplemental oxygen as needed. Home oxygen walk test to be performed today. Hopefully discharge home tomorrow. Her white blood cell count remains mildly elevated but improved. This is likely associated with recent steroid use and mild infection. I have encouraged the patient to ambulate in her room as much as possible. SCDs have been written for DVT prophylaxis. (2) Liver enzyme elevation ICD Codes: R74.8 - Abnormal levels of other serum enzymes Status: Acute Plan: Thought to be associated with possible medication administration and or current infectious process. Patient is asymptomatic. Appreciate GI input. Current labs pending. Discharge Planning Hopefully discharge home tomorrow Reports that she has 2 sons that live at home with her and they can help her. One of her sons apparently is an EMT. Hugo Agrawal MD PhD Aug 12, 2017 08:19
[2017-08-12] MEDS: predniSONE 20 MG TAB PO SCH (08:20)
[2017-08-12] MEDS ORDERED: POTASSIUM CHLORIDE 10 MEQ CONTROLLED RELEASE TAB PO ONE (09:15)
[2017-08-13] VITALS: BP 114/59; PULSE 78; RESP 18; TEMP 98.3; O2SAT 97
[2017-08-13] MEDS: RESP: ALBUTEROL 2.5 MG/IPRATROPIUM 0.5 MG NEB (SCH) NEB ×2 (03:22→07:53)
[2017-08-13 06:46] LABS: CHLORIDE 102 MEQ/L (98-107); POTASSIUM 3.2 MEQ/L (3.5-5.1); SODIUM (NA) 138 MEQ/L (136-145)
[2017-08-13 06:51] LABS: ANION GAP 8 MEQ/L (5-15); BICARBONATE 28.2 MEQ/L (21.0-32.0); BLOOD UREA NITROGEN 10 MG/DL (7-18)
[2017-08-13 06:53] LABS: ALT (GPT) 312 U/L (10-53); AUTOMATED NEUTROPHIL # 8.3 TH/MM3 (1.8-7.7); BASOPHIL % 0.2 % (0.0-2.0); EOSINOPHIL # 0.3 TH/MM3 (0-0.4); EOSINOPHIL % 1.9 % (0.0-4.0); LYMPH % 27.7 % (9.0-44.0); LYMPHOCYTE # 3.9 TH/MM3 (1.0-4.8); MEAN CELL VOLUME 83.9 FL (80.0-100.0); MEAN CORPUSCULAR HEMOGLOBIN 27.1 PG (27.0-34.0); MEAN CORPUSCULAR HGB CONC 32.3 % (32.0-36.0); MONO % 10.1 % (0.0-8.0); NEUT % 60.1 % (16.0-70.0); PLATELET COUNT 349 TH/MM3 (150-450); RED BLOOD COUNT 4.06 MIL/MM3 (4.00-5.30); RED CELL DISTRIBUTION WIDTH 13.5 % (11.6-17.2); WHITE BLOOD COUNT 13.9 TH/MM3 (4.0-11.0)
[2017-08-13 06:54] LABS: AST (GOT) 53 U/L (15-37); GLOMERULAR FILTRATION RATE 93 ML/MIN (>89)
[2017-08-13 06:55] LABS: HEMO FLAGS DIFF FINAL; TOTAL BILIRUBIN ADULT 0.2 MG/DL (0.2-1.0)
[2017-08-13 06:56] LABS: ALKALINE PHOSPHATASE 169 U/L (45-117)
--- NOTE | 2017-08-13 07:03 | HHI.PR ---
Subjective Remarks Feeling better. Requiring less supplemental oxygen. As ambulated in the [place] on room air while still maintaining sats in the mid 90s. Still having some occasional wheezing and bringing up little phlegm but again this is improving to Objective Vitals Vital Signs Date Time Temp Pulse Resp B/P (MAP) Pulse Ox O2 Delivery O2 Flow Rate FiO2 08/13/17 00:00 98.3 78 18 114/59 (77) 97 08/12/17 20:56 98.2 98 16 129/60 (83) 93 08/12/17 19:35 96 21 08/12/17 16:00 98.3 101 18 134/66 (88) 93 08/12/17 12:00 98.0 102 20 130/58 (82) 93 08/12/17 09:06 97 Nasal Cannula 3.00 08/12/17 08:08 97 Nasal Cannula 3.00 08/12/17 08:00 96.3 94 24 157/70 (99) 92 GENERAL: No acute distress, alert and oriented, pleasant. SKIN: Warm and dry. HEAD: Normocephalic. EYES: No scleral icterus. No injection or drainage. Extra ocular motions intact. NECK: Supple, trachea midline. No JVD or lymphadenopathy. CARDIOVASCULAR: Regular rate and rhythm without murmurs, gallops, or rubs. RESPIRATORY: Breath sounds equal bilaterally. Improved air movement. Coarse bronchovesicular sounds noted in the mid lungs bilaterally. No wheeze. No fine crackles. GASTROINTESTINAL: Abdomen soft, non-tender, nondistended. Bowel sounds normal. No guarding or rebound. MUSCULOSKELETAL: No cyanosis, or edema. EVELIO hose in place. BACK: Nontender without obvious deformity. Result Diagram: 08/13/17 0623 08/13/17 0623 Imaging Last Impressions Abdomen Ultrasound 08/07/17 0000 Signed Impressions: Service Date/Time: Monday, August 07, 2017 07:57 - CONCLUSION: 1. Unremarkable abdominal ultrasound examination. Specifically, no evidence for cholelithiasis or acute cholecystitis and no evidence for biliary obstruction. Quinton Nieto MD Chest X-Ray 08/06/17 1104 Signed Impressions: Service Date/Time: Sunday, August 06, 2017 11:23 - CONCLUSION: 1. No acute cardiopulmonary disease. 2. Mild elevation of the right hemidiaphragm. Ross Mccall MD Last Impressions Chest X-Ray 08/06/17 1104 Signed Impressions: Service Date/Time: Sunday, August 06, 2017 11:23 - CONCLUSION: 1. No acute cardiopulmonary disease. 2. Mild elevation of the right hemidiaphragm. Ross Mccall MD Urinary Catheter: No A/P Problem List: (1) Bronchitis ICD Codes: J40 - Bronchitis, not specified as acute or chronic Status: Acute Plan: Clinically improving. Continue oral prednisone and nebulizers. Supplemental oxygen as needed. We'll convert to MDI inhalers. Discharge home later today. Her white blood cell count remains mildly elevated but improved. This is likely associated with recent steroid use and mild infection. I have encouraged the patient to ambulate in her room as much as possible. SCDs have been written for DVT prophylaxis. (2) Liver enzyme elevation ICD Codes: R74.8 - Abnormal levels of other serum enzymes Status: Acute Plan: Thought to be associated with possible medication administration and or current infectious process. Patient is asymptomatic. Appreciate GI input. LFTs trending down. Discharge Planning Discharge home today. Patient has 2 sons that are senior estimator and live with her. One of her sons is present during today's exam. Hugo Agrawal MD PhD Aug 13, 2017 07:03
[2017-08-13] MEDS ORDERED: HUMIBIDDM PO (07:09)
[2017-08-13] MEDS ORDERED: PRED20 PO (07:09)
[2017-08-13] MEDS ORDERED: Albuterol Hfa Inh INH (07:09)
[2017-08-13] MEDS ORDERED: ALBUTEROL SULFATE 90 MCG/ACT HFA 8 GM INHALER INH PRN (07:15)
--- NOTE | 2017-08-13 07:17 | HHI.DS ---
Discharge Summary Admission Date Aug 08, 2017 at 07:17 Discharge Date: Aug 13, 2017 Admitting Diagnosis bronchitis/hypoxia (1) Bronchitis Diagnosis: Principal ICD Codes: J40 - Bronchitis, not specified as acute or chronic Status: Acute (2) Liver enzyme elevation Diagnosis: Secondary ICD Codes: R74.8 - Abnormal levels of other serum enzymes Status: Acute Consultants GI- Dr Campos Brief History This is a 72-year-old white female who came to the emergency room with worsening shortness of breath, wheezing and cough. She started with cold-like symptoms or runny nose and cough about six days prior to admission and it got worse day before admission and morning of presentation when she woke up she was having difficulty breathing in and out, more so on breathing out. The cough has been worsening and she has not been able to cough up much mucus only occasionally productive. She has had some chills on day prior to admit. No sore throat. No vomiting or abdominal pain or chest pain. In the emergency department she was given several breathing treatments with just some slight improvement but still mildly tachycardic and requiring oxygen and is being admitted for further treatment. CBC/BMP: 08/13/17 0623 08/13/17 0623 Significant Findings Laboratory Tests Test 08/11/17 05:47 08/12/17 07:00 08/13/17 06:23 White Blood Count 17.8 TH/MM3 (4.0-11.0) 15.5 TH/MM3 (4.0-11.0) 13.9 TH/MM3 (4.0-11.0) Hemoglobin 11.4 GM/DL (11.6-15.3) 11.3 GM/DL (11.6-15.3) 11.0 GM/DL (11.6-15.3) Hematocrit 34.9 % (35.0-46.0) 34.0 % (35.0-46.0) Neutrophils (%) (Auto) 71.9 % (16.0-70.0) Monocytes (%) (Auto) 8.4 % (0.0-8.0) 9.1 % (0.0-8.0) 10.1 % (0.0-8.0) Neutrophils # (Auto) 12.8 TH/MM3 (1.8-7.7) 10.4 TH/MM3 (1.8-7.7) 8.3 TH/MM3 (1.8-7.7) Monocytes # (Auto) 1.5 TH/MM3 (0-0.9) 1.4 TH/MM3 (0-0.9) 1.4 TH/MM3 (0-0.9) Aspartate Amino Transf (AST/SGOT) 282 U/L (15-37) 81 U/L (15-37) 53 U/L (15-37) Alanine Aminotransferase (ALT/SGPT) 653 U/L (10-53) 437 U/L (10-53) 312 U/L (10-53) Alkaline Phosphatase 162 U/L (45-117) 173 U/L (45-117) 169 U/L (45-117) Total Protein 6.0 GM/DL (6.4-8.2) 5.8 GM/DL (6.4-8.2) 5.7 GM/DL (6.4-8.2) Albumin 2.5 GM/DL (3.4-5.0) 2.3 GM/DL (3.4-5.0) 2.3 GM/DL (3.4-5.0) Mean Corpuscular Hemoglobin 26.8 PG (27.0-34.0) Mean Corpuscular Hemoglobin Concent 31.9 % (32.0-36.0) Random Glucose 113 MG/DL (74-106) Calcium Level 8.1 MG/DL (8.5-10.1) 8.1 MG/DL (8.5-10.1) Potassium Level 3.0 MEQ/L (3.5-5.1) 3.2 MEQ/L (3.5-5.1) Estimat Glomerular Filtration Rate 87 ML/MIN (>89) Hospital Course Relatively healthy 72-year-old female admitted for bronchitis with bronchospasm and mild hypoxemia. Her respiratory symptoms slowly responded to steroids, nebulizer, supplemental oxygen and antibiotics. The antibiotics were changed to Levaquin and subsequently doxycycline due to some LFT increases which were thought to be associated with the medications. Antibiotics were eventually stopped 2 days prior to discharge and patient remained afebrile with a white count that was normalizing on day of discharge. As noted LFTs were slightly elevated on date of admission but sofia even more during her initial hospital stay. This was thought to be associated with some medications she was given, possibly the antibiotics or Lovenox. Consequently Lovenox was stopped and antibiotics were changed and eventually stopped as well. LFTs were trending down on last 2 days of her hospital stay. She remained asymptomatic from a GI standpoint. She was evaluated by GI and they agreed that possible etiology was medications. Her ADEOLA and hepatitis panels were normal. Her lungs did take a bit longer than anticipated to improve somewhat was suggested that the patient that she have spirometry or formal PFTs done as an outpatient once she had recovered to her baseline. Did smoke for approximately 12 years in her life but has not smoked for 3 or 4 years now. Pt Condition on Discharge: Stable Discharge Disposition: Discharge Home Discharge Instructions DIET: Follow Instructions for: Heart Healthy Diet Speech Therapy-Diet Recommends: Regular Activities you can perform: Weight Bearing as Frances Other Activity Instructions: Start activity slow and advance as tolerated. Follow up Referrals: PCP Follow-up New Orders: COMP MET PROF (CMP) - 2-3 Days New Medications: Dextromethorphan-Guaifenesin (Mucinex DM) 30-600 Mg Tab 1 TAB PO BID PRN for CHEST CONGESTION AND/OR COUGH, #30 TAB 0 Refills Prednisone (Prednisone) 20 Mg Tab 20 MG PO DAILY for bronchitis, #6 TAB 1 daily for 4 days, then half daily for 4 days, then stop [Albuterol Hfa Inh] () 60 PUFF/8 GM AERO 2 PUFF INH Q4H PRN for shortness of breath or wheeze for 30 Days Continued Medications: Lactobacillus Acidophilus (Lactinex) 1 Tab Tab 1 TAB PO Q12HR for cdiff for 30 Days, TAB Discontinued Medications: Lidocaine/Diphenhy/Alum/Mg/Sim (Magic Mouthwash-Diphenhy Formula) Ml 5 ML SS Q3HR, #240 ML MAGIC MOUTHWASH=MIX 1/3 VISCOUS LIDOCAINE(80 ML), 1/3 MAALOX(80 ML),AND 1/3 BENADRYL(80 ML) TO EQUAL 240 ML TOTAL VOLUME. Metronidazole (Flagyl) 500 Mg Tab 500 MG PO TID for cdiff for 13 Days, TAB Ofloxacin (Ocuflox 0.3% Opht Soln (5 Ml)) 0.3 % Soln 1 DROP LEFT EYE QID for 7 Days, YOLY Prednisone (Sterapred Ds 12 Day Pack) 10 Mg Wolfgang 10 MG PO DIRECTED, #1 WOLFGANG USE DIRECTED Tramadol Hcl (Ultram) 50 Mg Tab 50 MG PO Q6H PRN for PAIN SCALE 4 TO 10, #20 TAB FOR PAIN Hugo Agrawal MD PhD Aug 13, 2017 07:17
== END 2017-08-13 08:34 | disposition home or self-care (01) | DRG 203 ==
LOC: PHED 10:44 → PHEDA 14:16 → PH3B 15:24 → OBSVTOIN 08-08 07:17
PROVIDERS: ADMIT Family Medicine; ATTEND Family Medicine
DX: J20.9 Acute bronchitis, unspecified (principal); R06.03 Acute respiratory distress; E55.9 Vitamin D deficiency, unspecified; K75.89 Other specified inflammatory liver diseases; K21.9 Gastro-esophageal reflux disease without esophagitis; R09.02 Hypoxemia; R79.89 Other specified abnormal findings of blood chemistry; D72.828 Other elevated white blood cell count; T38.0X5A Adverse effect of glucocorticoids and synthetic analogues, initial encounter; T45.515A Adverse effect of anticoagulants, initial encounter; T36.8X5A Adverse effect of other systemic antibiotics, initial encounter; T36.4X5A Adverse effect of tetracyclines, initial encounter; Y92.239 Unspecified place in hospital as the place of occurrence of the external cause; Z87.891 Personal history of nicotine dependence
CPT/HCPCS: 71010; 76700; 80048; 80053; 80074; 80076; 82103; 82248; 83540; 83550; 83880; 85025; 86038; 87040; 87804; 93005; 94620; 94640; 94664; 94667; 94668; J0456; J1650; J1956; J2920; J2930; J3475; J7050; J7512